=== PATIENT | male | born 1975 | race Caucasian/White ===

== ENCOUNTER → 2018-08-19 | Outpatient (REF) | payer BC | LOC: M LAB REF 10:54 | PROVIDERS: ATTEND Physician Assistant | DX: J02.9 Acute pharyngitis, unspecified (principal) ==

== ENCOUNTER 2020-02-11 16:03 | Emergency (ER) | payer BC ==
[~2020-02-11] VITALS: Ht 177.8 cm; Wt 86.5 kg
[2020-02-11 16:13] VITALS: BP 170/100
[2020-02-11] MEDS ORDERED: ACETAMINOPHEN TAB 650MG DOSE (2X325MG) PO ONE (17:00)
--- NOTE | 2020-02-11 17:26 | REP ---
INDICATION: cough, fever covid exposure COMPARISON: 12/31/2014 TECHNIQUE: Portable AP view of the chest FINDINGS: The mediastinum and cardiac silhouette are stable and within normal limits for portable technique. The lung [place] are clear without acute consolidation, effusion, or pneumothorax. Skeletal structures are intact. IMPRESSION: No acute cardiopulmonary process appreciated. <Electronically signed by Gerardo Torres > 02/11/20 [id number]
== END 2020-02-11 18:07 | disposition home or self-care (01) ==
LOC: M ED 16:03
DX: U07.1 COVID-19 (principal); Z88.0 Allergy status to penicillin
CPT/HCPCS: 71045; 99283; U0003

== ENCOUNTER 2022-12-17 07:55 | Emergency (ER) | payer BC ==
[~2022-12-17] VITALS: Ht 177.8 cm; Wt 90.9 kg
[2022-12-17] MEDS ORDERED: VALS1TAB67 PO (08:10)
[2022-12-17] MEDS ORDERED: HYDR-643 PO (08:11)
[2022-12-17] MEDS ORDERED: NS 1,000 ML IV ONE (08:30)
[2022-12-17] MEDS ORDERED: ONDANSETRON 4MG 2ML VIAL IV ONE (08:30)
[2022-12-17 08:51] LABS: BASO % 0.4 % (0.0-1.0); EOS # 0.1 10^3/uL (0.0-0.5); EOS % 0.9 % (0.0-3.0); HEMATOCRIT 48.3 % (42.0-52.0); HEMOGLOBIN 16.8 g/dl (13.5-17.5); LYMPH % 11.5 % (24.0-44.0); MEAN CORPUSCULAR HEMOGLOBIN 31.5 pg (27.0-33.0); MEAN CORPUSCULAR HGB CONC 34.8 g/dl (32.0-36.5); MEAN CORPUSCULAR VOLUME 90.6 fl (80.0-96.0); MONO # 0.6 10^3/uL (0.0-0.8); MONO % 6.2 % (2.0-8.0); NEUTROPHILS # 7.3 10^3/uL (1.5-8.5); NEUTROPHILS % 80.6 % (36.0-66.0); PLATELET COUNT, AUTOMATED 213 10^3/uL (150-450); RED BLOOD COUNT 5.33 10^6/uL (4.30-6.10); WHITE BLOOD COUNT 9.1 10^3/uL (4.0-10.0)
[2022-12-17] MEDS ORDERED: MORPHINE 4 MG/ML 1ML VIAL IV ONE (09:15)
[2022-12-17] MEDS ORDERED: METOCLOPRAMIDE INJ 10MG/2ML VIAL IV ONE (09:15)
[2022-12-17 09:22] LABS: LIPASE 94 U/L (12-53)
[2022-12-17 09:24] LABS: ALBUMIN 3.7 G/DL (3.2-5.2); ALKALINE PHOSPHATASE 78 U/L (46-116); ALT/SGPT 54 U/L (7.0-40); AST/SGOT 32 U/L (<34); BILIRUBIN,DIRECT 0.2 MG/DL (<0.4); BILIRUBIN,TOTAL 0.6 MG/DL (0.3-1.2); BLOOD UREA NITROGEN 11 MG/DL (9-23); CALCIUM LEVEL 8.7 MG/DL (8.5-10.1); CARBON DIOXIDE LEVEL 27 MMOL/L (20-31); CHLORIDE LEVEL 105 MMOL/L (98-107); CREATININE FOR GFR 1.07 MG/DL (0.70-1.30); GLOMERULAR FILTRATION RATE > 60.0 (>60); GLUCOSE, FASTING 113 MG/DL (60-100); POTASSIUM SERUM 4.1 MMOL/L (3.5-5.1); SODIUM LEVEL 139 MMOL/L (136-145); TOTAL PROTEIN 6.2 G/DL (5.7-8.2)
[2022-12-17] MEDS ORDERED: PERC5TAB12 PO (10:26)
[2022-12-17] MEDS ORDERED: ONDA4TAB6 PO (10:26)
[2022-12-17] MEDS ORDERED: FLOM0.4C39 PO (10:26)
[2022-12-17 10:51] VITALS: BP 117/70; TEMP 98; O2SAT 97
== END 2022-12-17 11:07 | disposition home or self-care (01) ==
LOC: EDBD 07:55 → M ED 07:55
DX: N21.1 Calculus in urethra (principal); I10 Essential (primary) hypertension; Z87.442 Personal history of urinary calculi; Z88.0 Allergy status to penicillin
CPT/HCPCS: 74176; 80047; 80048; 80076; 81001; 83690; 85025; 96361; 96374; 96375; 99284; J2765

== ENCOUNTER 2023-01-27 11:14 | Emergency (ER) | payer BC ==
[~2023-01-27] VITALS: Ht 177.8 cm; Wt 89.5 kg
[~2023-01-27 11:14] MED LIST: FLOM0.4C39 PO; HYDR-643 PO; ONDA4TAB6 PO; PERC5TAB12 PO; VALS1TAB67 PO
[2023-01-27 11:49] LABS: BASO % 0.2 % (0.0-1.0); EOS % 0.2 % (0.0-3.0); HEMATOCRIT 51.4 % (42.0-52.0); HEMOGLOBIN 17.7 g/dl (13.5-17.5); LYMPH # 0.9 10^3/uL (1.5-5.0); LYMPH % 6.7 % (24.0-44.0); MEAN CORPUSCULAR HEMOGLOBIN 31.2 pg (27.0-33.0); MEAN CORPUSCULAR HGB CONC 34.4 g/dl (32.0-36.5); MEAN CORPUSCULAR VOLUME 90.5 fl (80.0-96.0); MONO # 0.7 10^3/uL (0.0-0.8); MONO % 5.3 % (2.0-8.0); NEUTROPHILS # 11.4 10^3/uL (1.5-8.5); NEUTROPHILS % 87.2 % (36.0-66.0); PLATELET COUNT, AUTOMATED 229 10^3/uL (150-450); RED BLOOD COUNT 5.68 10^6/uL (4.30-6.10); WHITE BLOOD COUNT 13.1 10^3/uL (4.0-10.0)
[2023-01-27 12:39] LABS: ALBUMIN 3.6 G/DL (3.2-5.2); BILIRUBIN,DIRECT 0.4 MG/DL (<0.4); BILIRUBIN,TOTAL 1.2 MG/DL (0.3-1.2); TOTAL PROTEIN 6.4 G/DL (5.7-8.2)
[2023-01-27] MEDS ORDERED: HYDR-3713 PO (13:54)
[2023-01-27 14:25] VITALS: BP 118/75; TEMP 98; O2SAT 97
[2023-01-29] MEDS ORDERED: TAMS1CAP17 PO (10:27)
== END 2023-01-27 14:25 | disposition home or self-care (01) ==
LOC: M ED 11:14
DX: N21.1 Calculus in urethra (principal); I10 Essential (primary) hypertension; Z87.442 Personal history of urinary calculi; Z79.899 Other long term (current) drug therapy; Z88.0 Allergy status to penicillin

== ENCOUNTER 2023-01-30 05:50 | Day surgery (SDC) | payer BC ==
[~2023-01-30] VITALS: Ht 177.8 cm; Wt 89.3 kg
[~2023-01-30 05:50] MED LIST changes: +HYDR-3713 PO; +TAMS1CAP17 PO
[2023-01-30] MEDS ORDERED: ceFAZolin SOD 2 GM in IV 1 EA IV ONE (06:00)
[2023-01-30] MEDS ORDERED: LR 1,000 ML IV SCH ×2 (06:20→08:25)
[2023-01-30] MEDS ORDERED: KETOROLAC 60MG 2ML VIAL As Ordered ONE (07:00)
[2023-01-30] MEDS ORDERED: ACETAMINOPHEN 1000MG 100ML IV BAG As Ordered ONE (07:01)
[2023-01-30] MEDS ORDERED: LIDOCAINE 2% 100MG/5ML SDV (FOR ANES.) As Ordered ONE (07:01)
[2023-01-30] MEDS ORDERED: ONDANSETRON 4MG 2ML VIAL As Ordered ONE (07:01)
[2023-01-30] MEDS ORDERED: propofoL 200 MG/20 ML VIAL As Ordered ONE (07:01)
[2023-01-30] MEDS ORDERED: MIDAZOLAM INJ 2MG/2ML VIAL As Ordered ONE (07:02)
[2023-01-30] MEDS ORDERED: fentaNYL 100 MCG/2 ML INJECTION As Ordered ONE (07:02)
[2023-01-30] MEDS ORDERED: ISOVUE-300 61% 100ML VIAL As Ordered ONE (07:14)
[2023-01-30] MEDS ORDERED: oxyCODONE 5MG TAB PO PRN (08:25)
[2023-01-30] MEDS ORDERED: HYDROMORPHONE HCL 0.5 MG/ 0.5 ML SYRINGE IV PRN (08:25)
[2023-01-30] MEDS ORDERED: METOCLOPRAMIDE INJ 10MG/2ML VIAL IV PRN (08:25)
[2023-01-30] MEDS ORDERED: fentaNYL 100 MCG/2 ML INJECTION IV PRN (08:25)
[2023-01-30] MEDS ORDERED: ONDANSETRON 4MG 2ML VIAL IV PRN (08:25)
[2023-01-30] MEDS ORDERED: PERCOCET 5MG/325MG TAB PO PRN (08:40)
[2023-01-30 09:33] VITALS: BP 141/87; TEMP 98.4; O2SAT 100
[2023-01-30] MEDS ORDERED: oxyBUTYnin 5 MG TAB PO PRN (09:40)
[2023-01-30] MEDS ORDERED: OXYB5TAB11 PO (11:00)
== END 2023-01-30 10:29 | disposition home or self-care (01) ==
LOC: M SDC 05:50
PROVIDERS: ATTEND Urology
DX: N13.1 Hydronephrosis with ureteral stricture, not elsewhere classified (principal); I10 Essential (primary) hypertension; F41.9 Anxiety disorder, unspecified; F32.A Depression, unspecified; Z88.0 Allergy status to penicillin; Z87.891 Personal history of nicotine dependence; Z79.899 Other long term (current) drug therapy
CPT/HCPCS: 52356; 76000; 82365; C1769; C1894; C2617; J0131; J0690; J1100; J1885; J2250; J2405; J3010; Q9967

== ENCOUNTER → 2023-08-21 | Outpatient (CLI) | payer BC ==
[~2023-08-21] MED LIST changes: +ONDA-282 PO; -ONDA4TAB6 PO; +OXYB5TAB14 PO
== END ==
LOC: M PLAIMG 15:34
PROVIDERS: ATTEND Urology
DX: N20.0 Calculus of kidney (principal)

== ENCOUNTER → 2024-10-16 | Outpatient (CLI) | payer BC ==
[~2024-10-16] MED LIST changes: -FLOM0.4C39 PO; +TAMS-18 PO
== END ==
LOC: M PLAIMG 12:06
PROVIDERS: ATTEND Urology
DX: N20.0 Calculus of kidney (principal)